=== PATIENT | female | born 1935 | race Caucasian/White ===

== ENCOUNTER 2021-04-08 20:01 | Emergency (ER) | payer MEDICARE, BC ==
[~2021-04-08] VITALS: Ht 154.9 cm; Wt 63.5 kg
[~2021-04-08 20:01] MED LIST: ALBUTEROL2.5 MG/3 M INH; ASPIR-LOW81 MG GT; ATROVENT HFA12.9 GM INH; AVAPRO150 MG PO; CALCIUM600 MG PO; CARAFATE1 GM PO; CELEXA20 MG GT; DILAUDID1 MG/ML PO; DULCOLAX SUPPOSITORY PR; FENOFIBRATE160 MG GT; FENOFIBRATE160 MG PO; GAS RELIEF40 MG/0.6 GT; IPRAT-ALBUT 0.5-3 ML INH; IRBESARTAN150 MG GT; LANSOPRAZOLE30 MG PO; LEVAQUIN750 MG PO; LEVOTHYROXINE50 MCG PO; LEVOXYL50 MCG GT; MILK OF MA400 MG/5 M GT; OXYCODONE HC20 MG/ML GT; OXYCODONE HCL5 MG PO; PREDNISONE20 MG PO; PREVACID30 MG PO; PROMETHAZI6.25 MG/5 GT; PROMETHAZI6.25 MG/5 PO; TENORMIN50 MG GT; TYLENOL PM EX-1 EACH PO; VITAMIN D-32000 UNI1 PO; VITAMIN D32000 UNI1 GT; VITAMIN E100 UNIT PO
[2021-04-08] MEDS ORDERED: AMLODIPINE BESYL5 MG PO (20:26)
[2021-04-08] MEDS ORDERED: ALLERGY RELIEF25 MG PO (20:27)
[2021-04-08] MEDS ORDERED: FAMOTIDINE20 MG PO (20:27)
[2021-04-08] MEDS ORDERED: HALOPERIDOL5 MG/1 M1 INJ (20:29)
[2021-04-08] MEDS ORDERED: ISOSORBIDE MONO30 MG PO (20:29)
[2021-04-08] MEDS ORDERED: LACTULOSE10 GM/15 M PO (20:29)
[2021-04-08] MEDS ORDERED: LEVSIN0.125 MG PO (20:30)
[2021-04-08] MEDS ORDERED: ATIVAN1 MG PO (20:31)
[2021-04-08] MEDS ORDERED: LORAZEPAM INT2 MG/ML PO (20:31)
[2021-04-08] MEDS ORDERED: METOPROLOL TART25 MG PO (20:32)
[2021-04-08] MEDS ORDERED: MACROBID 100 M100 MG PO (20:32)
[2021-04-08] MEDS ORDERED: MORPHINE S PO (20:33)
[2021-04-08] MEDS ORDERED: PEPTO-BISM262 MG/15 PO (20:34)
[2021-04-08] MEDS ORDERED: NITROSTAT0.4 MG SL (20:34)
[2021-04-08] MEDS ORDERED: PERIDEX473 M1 MM (20:35)
[2021-04-08] MEDS ORDERED: SALONPAS LIDOCA85 GM TOP (20:36)
[2021-04-08] MEDS ORDERED: SODIUM BICARBO650 MG PO (20:37)
== END 2021-04-08 23:32 | disposition home or self-care (01) ==
LOC: ED 20:01
DX: F10.129 Alcohol abuse with intoxication, unspecified (principal); E03.9 Hypothyroidism, unspecified; I12.0 Hypertensive chronic kidney disease with stage 5 chronic kidney disease or end stage renal disease; N18.5 Chronic kidney disease, stage 5; Z87.891 Personal history of nicotine dependence; Z88.1 Allergy status to other antibiotic agents; Z88.2 Allergy status to sulfonamides; Z79.82 Long term (current) use of aspirin; Z79.899 Other long term (current) drug therapy
CPT/HCPCS: 99284